=== PATIENT | female | born 1990 | race African-American/Black ===

== ENCOUNTER 2019-08-22 07:36 | Inpatient (IN) | payer MEDICAID ==
[~2019-08-22] VITALS: Ht 160 cm; Wt 74.4 kg
[2019-08-22] MEDS ORDERED: DEXT 5%/LR + PITOCIN 20UNITS/L 1,000 ML IV SCH ×2 (07:59→11:46)
[2019-08-22] MEDS ORDERED: LACTATED RINGERS 1,000 ML IV SCH (07:59)
[2019-08-22] MEDS ORDERED: CITRIC ACID/SODIUM CITRATE SOLN 30ML UDC PO ONE ×2 (08:00→08:45)
[2019-08-22] MEDS ORDERED: MISOPROSTOL 100MCG TABLET VG SCH (08:00)
[2019-08-22] MEDS ORDERED: METHYLERGONOVINE MALEATE 0.2 MG/ML IM PRN (08:00)
[2019-08-22] MEDS ORDERED: NALOXONE HCL 0.4 MG/ML 1ML VIAL IM PRN (08:00)
[2019-08-22] MEDS ORDERED: CARBOPROST TROMETHAMINE 250 MCG/ML AMPUL IM PRN (08:00)
[2019-08-22 08:39] LABS: CLARITY URINE CLEAR (CLEAR); COLOR URINE YELLOW (YELLOW); KETONES URINE NEGATIVE (NEGATIVE); LEUKOCYTE ESTERASE URINE 1+ (NEGATIVE); NITRITE URINE NEGATIVE (NEGATIVE); OCCULT BLOOD URINE NEGATIVE (NEGATIVE); PH URINE 6.5 (4.5-8.0); PROTEIN URINE NEGATIVE (NEGATIVE); SPECIFIC GRAVITY URINE 1.016 (1.005-1.030)
[2019-08-22 08:40] LABS: BASOPHILS % 0.6 % (0.0-2.0); EOSINOPHILS % 0.2 % (0.0-5.0); HEMATOCRIT. 36.3 % (36.0-48.0); LYMPHOCYTES % 34.6 % (20.0-50.0); MEAN CORPUSCULAR HEMOGLOBIN 30.3 pg (28.0-32.0); MEAN CORPUSCULAR VOLUME 91.8 fL (81.0-99.0); MEAN PLATELET VOLUME 8.1 fl (7.4-10.4); MONOCYTES % 6.3 % (2.0-8.0); NEUTROPHILS % 58.3 % (40.0-76.0); PLATELET 225 x1000/uL (130-400); RED BLOOD CELL COUNT 3.96 mill/uL (4.2-5.4); RED CELL DISTRIBUTION WIDTH 14.5 % (11.6-14.6)
[2019-08-22] MEDS ORDERED: FENTANYL CITRATE/PF 50MCG/ML 2ML VIAL ONE (08:48)
[2019-08-22] MEDS ORDERED: GLYCOPYRROLATE 0.2 MG/ML 2ML VIAL ONE (08:49)
[2019-08-22] MEDS ORDERED: OXYTOCIN 10 UNITS/ML 1ML ONE (08:49)
[2019-08-22] MEDS ORDERED: EPHEDRINE SULFATE 50MG/ML VIAL ONE (08:49)
[2019-08-22] MEDS ORDERED: MORPHINE SULFATE/PF 1MG/ML 10ML AMP ONE (08:49)
[2019-08-22] MEDS ORDERED: ONDANSETRON HCL 4MG/2ML INJ ONE (08:49)
[2019-08-22] MEDS ORDERED: PHENYLEPHRINE HCL 10 MG/ML 1ML (IV VIAL) IV ONE (08:49)
[2019-08-22] MEDS ORDERED: METOCLOPRAMIDE HCL 10MG/2ML VIAL ONE (08:49)
[2019-08-22] MEDS ORDERED: CEFAZOLIN SODIUM 1000MG/VIAL ONE (08:49)
[2019-08-22 08:50] LABS: PARTIAL THROMBOPLASTIN TIME 29.9 sec (23.4-31.0); PROTHROMBIN TIME 9.8 sec (9.6-11.0)
[2019-08-22 09:06] LABS: *AMPHETAMINES SCREEN URINE NEGATIVE (NEGATIVE); *BARBITURATES SCREEN URINE NEGATIVE (NEGATIVE); *COCAINE SCREEN URINE NEGATIVE (NEGATIVE)
[2019-08-22 09:07] LABS: CANNABINOID URINE SCREEN NEGATIVE (NEGATIVE); METHADONE URINE SCREEN NEGATIVE (NEGATIVE); OPIATES URINE SCREEN NEGATIVE (NEGATIVE); PHENCYCLIDINE URINE SCREEN NEGATIVE (NEGATIVE)
[2019-08-22 09:16] LABS: *BENZODIAZEPINES SCREEN URINE NEGATIVE (NEGATIVE)
[2019-08-22 10:56] LABS: HEPATITIS B SURFACE ANTIGEN NEGATIVE
[2019-08-22] MEDS ORDERED: KETOROLAC 60MG/2ML VIAL IM ONE (11:05)
[2019-08-22] MEDS ORDERED: DIPHENHYDRAMINE 50MG/ML VIAL IV PRN (11:45)
[2019-08-22] MEDS ORDERED: NALOXONE HCL 0.4 MG/ML 1ML VIAL IV PRN (11:45)
[2019-08-22] MEDS ORDERED: BUTORPHANOL TARTRATE 2 MG/ML VIAL IV PRN (11:45)
[2019-08-22] MEDS ORDERED: IBUPROFEN 400MG TABLET PO PRN (12:00)
[2019-08-22] MEDS ORDERED: ACETAMINOPHEN WITH CODEINE 300/30MG TABLET PO PRN (12:00)
[2019-08-22] MEDS ORDERED: HEMORRHOIDAL SUPP PR PRN (12:00)
[2019-08-22] MEDS ORDERED: BISACODYL 10MG SUPP PR PRN (12:00)
[2019-08-22] MEDS ORDERED: ONDANSETRON HCL 4MG/2ML INJ IV PRN (12:00)
[2019-08-22] MEDS ORDERED: HYDROCODONE/ACETAMINOPHEN 5/325MG TABLET PO PRN (12:00)
[2019-08-22 14:10] VITALS: BP 109/60
[2019-08-22] MEDS: MAGNESIUM/ALUMINUM HYDROXIDE/SIMETHICONE 30ML UDC PO SCH ×3 (14:10→21:19)
[2019-08-22] MEDS: SIMETHICONE 80MG TABLET CHEW PO SCH ×3 (14:10→21:19)
[2019-08-22 14:40] VITALS: BP 103/51
[2019-08-22 16:32] VITALS: BP 99/67
[2019-08-22] MEDS: KETOROLAC 30MG/ML VIAL IV SCH ×2 (17:07→23:15)
[2019-08-22 19:35] VITALS: BP 109/61
[2019-08-22] MEDS: DOCUSATE SODIUM 100MG CAPSULE PO SCH (21:19)
[2019-08-23 00:04] VITALS: BP 107/57
[2019-08-23] MEDS: KETOROLAC 30MG/ML VIAL IV SCH ×2 (06:04→11:26)
[2019-08-23 06:25] LABS: BASOPHILS % 0.3 % (0.0-2.0); EOSINOPHILS % 0.5 % (0.0-5.0); HEMATOCRIT. 34.4 % (36.0-48.0); HEMOGLOBIN. 11.1 g/dL (12.0-16.0); LYMPHOCYTES % 17.5 % (20.0-50.0); MEAN CORPUSCULAR VOLUME 92.9 fL (81.0-99.0); MEAN PLATELET VOLUME 7.7 fl (7.4-10.4); MONOCYTES % 5.7 % (2.0-8.0); PLATELET 180 x1000/uL (130-400); RED CELL DISTRIBUTION WIDTH 14.4 % (11.6-14.6)
[2019-08-23 06:43] VITALS: BP 122/68
[2019-08-23 10:05] VITALS: BP 119/69
[2019-08-23] MEDS: IBUPROFEN 800MG TABLET PO PRN ×2 (11:24→18:08)
[2019-08-23] MEDS: PRENATAL VIT/FE FUMARATE/FA TABLET PO SCH (11:25)
[2019-08-23] MEDS: SIMETHICONE 80MG TABLET CHEW PO SCH ×4 (11:25→18:14)
[2019-08-23] MEDS: MAGNESIUM/ALUMINUM HYDROXIDE/SIMETHICONE 30ML UDC PO SCH ×4 (11:26→20:46)
[2019-08-23] MEDS: FERROUS SULFATE 325MG TABLET PO SCH ×3 (11:26→18:08)
[2019-08-23 16:00] VITALS: BP 136/84
[2019-08-23 20:07] VITALS: BP 134/75
[2019-08-23] MEDS: DOCUSATE SODIUM 100MG CAPSULE PO SCH (20:45)
[2019-08-24] MEDS: IBUPROFEN 800MG TABLET PO PRN ×3 (01:26→16:32)
[2019-08-24 03:59] VITALS: BP 121/87
[2019-08-24] MEDS: FERROUS SULFATE 325MG TABLET PO SCH ×3 (07:30→17:30)
[2019-08-24] MEDS: MAGNESIUM/ALUMINUM HYDROXIDE/SIMETHICONE 30ML UDC PO SCH ×4 (07:30→20:39)
[2019-08-24] MEDS: SIMETHICONE 80MG TABLET CHEW PO SCH ×4 (08:00→20:40)
[2019-08-24 08:10] VITALS: BP 126/85
[2019-08-24] MEDS: PRENATAL VIT/FE FUMARATE/FA TABLET PO SCH (09:00)
[2019-08-24 16:11] VITALS: BP 113/75
[2019-08-24 20:35] VITALS: BP 136/73
[2019-08-24] MEDS: DOCUSATE SODIUM 100MG CAPSULE PO SCH (20:39)
[2019-08-25 04:00] VITALS: BP 122/77
[2019-08-25] MEDS: IBUPROFEN 800MG TABLET PO PRN (05:45)
[2019-08-25] MEDS ORDERED: HYDR-4001 PO (06:32)
[2019-08-25] MEDS ORDERED: IBUP-2028 PO (06:32)
[2019-08-25 07:32] VITALS: BP 121/61
[2019-08-25] MEDS: SIMETHICONE 80MG TABLET CHEW PO SCH (08:12)
[2019-08-25] MEDS: FERROUS SULFATE 325MG TABLET PO SCH (08:12)
[2019-08-25] MEDS: PRENATAL VIT/FE FUMARATE/FA TABLET PO SCH (08:12)
[2019-08-25] MEDS: MAGNESIUM/ALUMINUM HYDROXIDE/SIMETHICONE 30ML UDC PO SCH (08:12)
== END 2019-08-25 13:50 | disposition home or self-care (01) | DRG 540 ==
LOC: 8 EST LDRP 07:36 → OBSVTOIN 07:36 → 8EST 13:55
PROVIDERS: ADMIT Obstetrics & Gynecology; ATTEND Obstetrics & Gynecology
PROC: 10D00Z1 Extraction of Products of Conception, Low, Open Approach (ICD-10-PCS; principal; 2019-08-22)
DX: O34.211 Maternal care for low transverse scar from previous cesarean delivery (principal); O32.1XX0 Maternal care for breech presentation, not applicable or unspecified; O99.03 Anemia complicating the puerperium; Z37.0 Single live birth; Z3A.39 39 weeks gestation of pregnancy
CPT/HCPCS: 36415; 80305; 81003; 86592; 86703; 86762; 86850; 86900; 86920; 87340; 88307; J0595; J0690; J1200; J1885; J2274; J2370; J2405; J2590; J2765; J3010; J3490; A4315

== ENCOUNTER 2023-01-01 15:59 | Emergency (ER) | payer MEDICAID ==
[~2023-01-01] VITALS: Ht 160 cm; Wt 75.0 kg
[2023-01-01 16:11] VITALS: BP 154/77
== END 2023-01-01 21:30 | disposition left against medical advice (07) ==
LOC: ER 15:59
DX: Z53.21 Procedure and treatment not carried out due to patient leaving prior to being seen by health care provider (principal); N93.9 Abnormal uterine and vaginal bleeding, unspecified
CPT/HCPCS: 99281

== ENCOUNTER 2025-10-11 21:22 | Emergency (ER) | payer MEDICAID, OTHER ==
[~2025-10-11] VITALS: Ht 160 cm; Wt 91.0 kg
[2025-10-11 21:40] VITALS: TEMP 98.6; O2SAT 98
[2025-10-11 22:55] LABS: CLARITY URINE CLEAR (CLEAR); COLOR URINE YELLOW (YELLOW); GLUCOSE URINE NEGATIVE (NEGATIVE); KETONES URINE NEGATIVE (NEGATIVE); LEUKOCYTE ESTERASE URINE NEGATIVE (NEGATIVE); NITRITE URINE NEGATIVE (NEGATIVE); OCCULT BLOOD URINE TRACE (NEGATIVE); PH URINE 5.5 (4.5-8.0); PROTEIN URINE NEGATIVE (NEGATIVE); SPECIFIC GRAVITY URINE 1.004 (1.005-1.030); UROBILINOGEN URINE 0.2 E.U./dL (0.2-1.0)
[2025-10-11 23:36] LABS: BACTERIA URINE 2+; SQUAMOUS EPITHELIAL CELL URINE 2+ /lpf (RARE/1+)
[2025-10-12 00:34] VITALS: BP 144/93; PULSE 61; RESP 14; O2SAT 99
== END 2025-10-12 00:35 | disposition home or self-care (01) ==
LOC: ER 21:22
DX: R10.24 Suprapubic pain (principal); Z98.891 History of uterine scar from previous surgery
CPT/HCPCS: 81003; 99283